=== PATIENT | female | born 1990 | race Caucasian/White ===

== ENCOUNTER 2017-02-19 22:04 | Emergency (ER) | payer OTHER, SELFPAY ==
[2017-02-19 23:00] VITALS: BP 151/93; PULSE 98; O2SAT 96
[2017-02-19] MEDS ORDERED: MOTRIN 600 MG PO ONE (23:16)
--- NOTE | 2017-02-19 23:20 | ERPHSYRPT ---
- History of Present Illness Time Seen by Provider: 02/19/17 23:10 Source: patient, family Patient Subjective Stated Complaint: pt was seen at [facility] today and dx with bronchitis and pneumonia -tonight she is co hearing muffled like under water and pain in right Triage Nursing Assessment: pt is awake and alert Physician History: CC: right earache Hx: 26 y/o patient of dr Hernández. She has cold symptoms for 3 weeks. Hx of PCO and states not . Sometimes smokes. She saw [facility] today and had Rx for alb MDI, tessalon, and Zpack. She is allergies to some other abtx. Tontie the right ear is muffled in hearing and more painful. She goes to school at [employer]. ENT Location: ear (R) Allergies/Adverse Reactions: cefaclor [From Ceclor] Allergy (Verified 11/07/15 06:21) cephalexin monohydrate [From Keflex] Allergy (Verified 11/07/15 06:21) Sulfa (Sulfonamide Antibiotics) Allergy (Verified 07/29/15 01:27) Rash Home Medications: Albuterol Sulfate [Proventil Hfa] 0 02/19/17 [History] Azithromycin 1 tab 02/19/17 [History] Benzonatate [Tessalon Perle] 1 tab 02/19/17 [History] Hx Tetanus, Diphtheria Vaccination/Date Given: Yes Hx Influenza Vaccination/Date Given: Yes Hx Pneumococcal Vaccination/Date Given: No - Review of Systems Constitutional: Malaise, No Fever, No Chills Eyes: No Symptoms Ears, Nose, & Throat: Ear Pain, Hearing Changes (muffled), Nose Congestion, No Ear Discharge Respiratory: Cough Abdominal/Gastrointestinal: No Vomiting, No Diarrhea Skin: No Rash Neurological: No Headache - Past Medical History Pertinent Past Medical History: Yes Neurological History: No Pertinent History ENT History: No Pertinent History Cardiac History: No Pertinent History Respiratory History: No Pertinent History Endocrine Medical History: No Pertinent History Musculoskeletal History: No Pertinent History GI Medical History: GERD History: Other Psycho-Social History: Depression Female Reproductive Disorders: Other Other Medical History: pcos - Past Surgical History Past Surgical History: Yes Neuro Surgical History: No Pertinent History Cardiac: No Pertinent History Respiratory: No Pertinent History Gastrointestinal: No Pertinent History Genitourinary: No Pertinent History Musculoskeletal: Orthopedic Surgery Other Surgical History: bilateral feet - Social History Smoking Status: Former smoker How long have you smoked: 11 Exposure to second hand smoke: No Drug Use: none Patient Lives Alone: No - Female History Hx Last Menstrual Period: 1 yr ago Hx Now: No - Nursing Vital Signs Nursing Vital Signs: Initial Vital Signs Temperature 98.2 F Temperature Source Oral Pulse Rate 98 Respiratory Rate 18 Blood Pressure [Right Arm] 151/93 Pain Intensity 1 - Physical Exam General Appearance: alert Eye Exam: bilateral eye: PERRL, EOMI Ear Exam: right ear: auricle normal, canal normal, TM dull, TM red, TM bulging, left ear: TM normal Nasal Exam: normal inspection Throat Exam: pharynx normal Neck Exam: normal inspection Cardiovascular/Respiratory Exam: normal breath sounds Neurologic Exam: alert Skin Exam: warm, dry SpO2: 96 Oxygen Delivery: Room Air - Course Nursing assessment & vital signs reviewed: Yes Ordered Tests: Medication Summary Generic Name Dose Route Start Last Admin Trade Name Freq PRN Reason Stop Dose Admin Ibuprofen 600 mg 02/19/17 23:16 Motrin 600 Mg PO 02/19/17 23:17 STAT ONE - Progress Progress Note: 02/19/17 23:18 Advised motrin. Continue zpack which was just started in past few hours. Counseled pt/family regarding: diagnosis, need for follow-up - Departure Time of Disposition: 23:19 Departure Disposition: Home Clinical Impression: Right otitis media with effusion Condition: Stable Critical Care Time: No Referrals: SHEN HERNÁNDEZ [Primary Care Provider] - Instructions: Otitis Media (Middle Ear Infection) Additional Instructions: Continue Zpack. Nothing in your ear. Follow up with Dr Hernández. Off work/school tomorrow. Rx ibuprofen=motrin. Prescriptions: Ibuprofen 600 mg PO Q6H PRN PRN #20 tablet PRN Reason: Pain
[2017-02-19] MEDS ORDERED: Motrin 100 MG/5 ML ONE (23:24)
[2017-02-19] MEDS ORDERED: MOTRIN 600 MG ONE (23:25)
== END 2017-02-19 23:34 | disposition home or self-care (01) ==
LOC: ED 22:04
DX: H65.91 Unspecified nonsuppurative otitis media, right ear (principal)
CPT/HCPCS: 99284; A9270-GY

== ENCOUNTER 2017-05-06 22:50 | Emergency (ER) | payer OTHER, SELFPAY ==
[2017-05-06] MEDS ORDERED: Zithromax 250 MG TABLET PO ONE (23:08)
[2017-05-06] MEDS ORDERED: ZOFRAN ODT 4 MG PO ONE (23:08)
[2017-05-06] MEDS ORDERED: Zithromax 250 MG TABLET ONE (23:14)
[2017-05-06] MEDS ORDERED: ZOFRAN ODT 4 MG ONE (23:15)
--- NOTE | 2017-05-06 23:15 | ERPHSYRPT ---
- History of Present Illness Time Seen by Provider: 05/06/17 22:55 Source: patient Exam Limitations: no limitations Patient Subjective Stated Complaint: Pt sts ate dinner - pasta with luis - cramping in abd while eating and vomited x 1. Pt sts she saw a few drops of blood in the vomit and family got concerned and made her come in. Sts nausea and cramping have both resolved. No diarrhea. Sts has discomfort in throat now. Triage Nursing Assessment: Pt alert, oriented, answers all questions appropriately. Skin p/w/d, resps non-labored. Pt ambulatory to tx room, steady gait noted. Lungs CTA bilat. ABD soft, non-tender, + bowel sounds x 4 quadrants. Physician History: FOR THE PAST 2 DAYS PT HAS HAD COUGH PRODUCTIVE OF WHITE PHLEGM AND EARACHES; FOR THE PAST HOUR VOMITING X2 WITH A FEW DROPS OF BLOOD AND A SORE THROAT. PT DENIES CHEST PAIN, SHORTNESS OF AIR, FEVER. Allergies/Adverse Reactions: cefaclor [From Ceclor] Allergy (Verified 05/06/17 23:05) cephalexin monohydrate [From Keflex] Allergy (Verified 05/06/17 23:05) Sulfa (Sulfonamide Antibiotics) Allergy (Verified 05/06/17 23:05) Rash Hx Tetanus, Diphtheria Vaccination/Date Given: Yes Hx Influenza Vaccination/Date Given: Yes Hx Pneumococcal Vaccination/Date Given: No Immunizations Up to Date: Yes - Review of Systems Constitutional: No Fever Ears, Nose, & Throat: Ear Pain, Throat Pain Respiratory: Cough Abdominal/Gastrointestinal: Vomiting All Other Systems: Reviewed and Negative - Past Medical History Pertinent Past Medical History: Yes Neurological History: No Pertinent History ENT History: No Pertinent History Cardiac History: No Pertinent History Respiratory History: No Pertinent History Endocrine Medical History: No Pertinent History Musculoskeletal History: No Pertinent History GI Medical History: GERD History: Other Psycho-Social History: Depression Female Reproductive Disorders: Other Other Medical History: pcos - Past Surgical History Past Surgical History: Yes Neuro Surgical History: No Pertinent History Cardiac: No Pertinent History Respiratory: No Pertinent History Gastrointestinal: No Pertinent History Genitourinary: No Pertinent History Musculoskeletal: Orthopedic Surgery Other Surgical History: bilateral feet - Social History Smoking Status: Current every day smoker How long have you smoked: 10 Exposure to second hand smoke: No Drug Use: none Patient Lives Alone: No - Female History Hx Last Menstrual Period: 07/2016 - PCOS Hx Now: No - Nursing Vital Signs Nursing Vital Signs: Initial Vital Signs Temperature 98.0 F 05/06/17 22:58 Pulse Rate 113 H 05/06/17 22:58 Respiratory Rate 20 05/06/17 22:58 Blood Pressure 131/79 05/06/17 22:58 O2 Sat by Pulse Oximetry 97 05/06/17 22:58 Pain Scale Pain Intensity 0 - Physical Exam General Appearance: alert Eye Exam: PERRL/EOMI Ears, Nose, Throat Exam: moist mucous membranes, pharyngeal erythema, other (TM' S ERYTHEMATOUS) Neck Exam: normal inspection Respiratory Exam: lungs clear Cardiovascular Exam: normal heart sounds Gastrointestinal/Abdomen Exam: soft, normal bowel sounds, No tenderness Back Exam: normal range of motion Extremity Exam: normal inspection Neurologic Exam: alert, cooperative Skin Exam: warm, dry SpO2 Interpretation: normal SpO2: 97 Oxygen Delivery: Room Air - Course Nursing assessment & vital signs reviewed: Yes Ordered Tests: Medication Summary Discontinued Medications Generic Name Dose Route Start Last Admin Trade Name Juanq PRN Reason Stop Dose Admin Azithromycin 500 mg 05/06/17 23:08 Zithromax 250 Mg Tablet PO 05/06/17 23:09 STAT ONE Ondansetron HCl 4 mg 05/06/17 23:08 Zofran Odt 4 Mg PO 05/06/17 23:09 STAT ONE - Departure Time of Disposition: 23:15 Departure Disposition: Home Clinical Impression: BOM, PHARYNGITIS, VOMITING Condition: Stable Critical Care Time: No Referrals: SHEN GOMEZ [Primary Care Provider] - Instructions: Vomiting -- Adult, Otitis Media (Middle Ear Infection) Additional Instructions: FOLLOW UP WITH PRIVATE DOCTOR TOMORROW. Prescriptions: Promethazine HCl 25 mg [Phenergan 25 mg] 25 mg PO Q4H PRN PRN #14 tablet PRN Reason: Nausea/Vomiting Azithromycin 250 mg [Zithromax 250 MG TABLET] 250 mg PO ZPACK #6 tablet Cetirizine HCl [Zyrtec] 10 mg PO DAILY #10 tablet
[2017-05-06 23:35] VITALS: BP 128/62; PULSE 96; O2SAT 99
== END 2017-05-06 23:35 | disposition home or self-care (01) ==
LOC: ED 22:50
DX: H66.93 Otitis media, unspecified, bilateral (principal); J02.9 Acute pharyngitis, unspecified; R11.10 Vomiting, unspecified; R11.2 Nausea with vomiting, unspecified
CPT/HCPCS: 99282; 99283; Q0162; A9270-GY

== ENCOUNTER 2017-05-28 21:07 | Emergency (ER) | payer OTHER, SELFPAY ==
[2017-05-28] MEDS ORDERED: NORCO 5/325 MG PO ONE (21:59)
--- NOTE | 2017-05-28 22:15 | ERPHSYRPT ---
- History of Present Illness Time Seen by Provider: 05/28/17 21:56 Source: patient Exam Limitations: no limitations Patient Subjective Stated Complaint: pt tripped over the cat at 1400 landing on her left elbow on the floor she denies other injuies -there is increased pain with movement -she has not taken anything for the pain -there is no swelling or deformity noted Triage Nursing Assessment: pt is awake and alert and able to answer questions Physician History: ABOUT 7 HOURS AGO AT HOME PT TRIPPED OVER A KITTEN WITH RESULTANT LEFT ELBOW PAIN; DENIES PREVIOUS INJURY TO THE LEFT ELBOW; DENIES NUMBNESS OF THE LEFT HAND DIGITS. Allergies/Adverse Reactions: cefaclor [From Ceclor] Allergy (Verified 05/28/17 21:57) cephalexin monohydrate [From Keflex] Allergy (Verified 05/28/17 21:57) Sulfa (Sulfonamide Antibiotics) Allergy (Verified 05/28/17 21:57) Rash Hx Tetanus, Diphtheria Vaccination/Date Given: Yes Hx Influenza Vaccination/Date Given: No Hx Pneumococcal Vaccination/Date Given: No Immunizations Up to Date: No - Review of Systems Musculoskeletal: Joint Pain (LEFT ELBOW PAIN) - Past Medical History Pertinent Past Medical History: Yes Neurological History: No Pertinent History ENT History: No Pertinent History Cardiac History: No Pertinent History Respiratory History: No Pertinent History Endocrine Medical History: No Pertinent History Musculoskeletal History: No Pertinent History GI Medical History: GERD History: Other Psycho-Social History: Depression Female Reproductive Disorders: Other Other Medical History: pcos - Past Surgical History Past Surgical History: Yes Neuro Surgical History: No Pertinent History Cardiac: No Pertinent History Respiratory: No Pertinent History Gastrointestinal: No Pertinent History Genitourinary: No Pertinent History Musculoskeletal: Orthopedic Surgery Other Surgical History: bilateral feet - Social History Smoking Status: Current every day smoker How long have you smoked: 10 Exposure to second hand smoke: No Drug Use: none Patient Lives Alone: No - Female History Hx Last Menstrual Period: nov Hx Now: No - Nursing Vital Signs Nursing Vital Signs: Initial Vital Signs Temperature 98.6 F 05/28/17 21:56 Pulse Rate 108 H 05/28/17 21:56 Respiratory Rate 16 05/28/17 21:56 Blood Pressure 130/78 05/28/17 21:56 O2 Sat by Pulse Oximetry 97 05/28/17 21:56 Pain Scale Pain Intensity 3 - Physical Exam General Appearance: alert Shoulder Exam: normal ROM Elbow/Forearm Exam: normal ROM, pain (PAIN IN LEFT ELBOW WITH ROM) Wrist Exam: normal ROM Hand Exam: normal ROM Neuro/Tendon Exam: normal sensation, normal motor functions Mental Status Exam: alert, cooperative Skin Exam: warm, dry SpO2 Interpretation: normal SpO2: 97 Oxygen Delivery: Room Air - Course Nursing assessment & vital signs reviewed: Yes - Radiology Exams Left Elbow X-ray Interpretation: Interpreted by me, No Fracture Ordered Tests: Active Orders 24 hr Category Date Time Status Wilian Bandage Application -[facility] STAT Care 05/28/17 21:59 Active Sling Application STAT Care 05/28/17 21:59 Active ELBOW (MINIMUM 3 VIEWS) Stat Exams 05/28/17 21:59 Taken Medication Summary Discontinued Medications Generic Name Dose Route Start Last Admin Trade Name Freq PRN Reason Stop Dose Admin Hydrocodone Bitart/Acetaminophen 2 tab 05/28/17 21:59 05/28/17 22:17 [place] 5/325 Mg PO 05/28/17 22:00 2 tab STAT ONE Administration Hydrocodone Bitart/Acetaminophen Confirm 05/28/17 22:16 [place] 5/325 Mg Administered 05/28/17 22:17 Dose 2 tab .ROUTE .STK-MED ONE - Departure Time of Disposition: 23:21 Departure Disposition: Home Clinical Impression: LEFT ELBOW SPRAIN Condition: Stable Critical Care Time: No Referrals: SHEN GOMEZ [Primary Care Provider] - Instructions: Elbow Sprain Additional Instructions: FOLLOW UP WITH PRIVATE DOCTOR TOMORROW. ELEVATE LEFT ELBOW ABOVE HEART LEVEL FOR 24 HOURS. WILIAN WRAP TO LEFT ELBOW FOR 4 DAYS. WEAR LEFT ARM SLING FOR COMFORT. Prescriptions: Naproxen [Naprosyn] 500 mg PO Q12H PRN PRN #20 tablet PRN Reason: Pain
[2017-05-28] MEDS ORDERED: NORCO 5/325 MG ONE (22:16)
[2017-05-28 23:34] VITALS: BP 129/74; PULSE 100; O2SAT 96
--- NOTE | 2017-05-29 09:12 | XRAY ---
Indication: Pain following fall. Comparison: None 3 views of the left elbow obtained. No bony, articular, or soft tissue abnormalities.
== END 2017-05-28 23:33 | disposition home or self-care (01) ==
LOC: ED 21:07
DX: S53.402A Unspecified sprain of left elbow, initial encounter (principal); W01.0XXA Fall on same level from slipping, tripping and stumbling without subsequent striking against object, initial encounter
CPT/HCPCS: 73080; 99284; A9270-GY

== ENCOUNTER 2017-08-30 01:01 | Emergency (ER) | payer BC, OTHER ==
[2017-08-30 01:22] VITALS: O2SAT 97
[2017-08-30] MEDS ORDERED: ZOFRAN ODT 4 MG PO ONE (01:26)
[2017-08-30] MEDS ORDERED: TORAdol 30 mg Injection IM ONE (01:26)
[2017-08-30] MEDS ORDERED: TORAdol 30 mg Injection ONE (01:31)
[2017-08-30] MEDS ORDERED: ZOFRAN ODT 4 MG ONE (01:31)
[2017-08-30 01:40] LABS: Bilirubin NEGATIVE (NEGATIVE); Blood TRACE NON-HEM Ery/ul (0-5); COMPLETE URINE MICROSCOPIC? YES; Collection Type CCMS; Glucose NEGATIVE (NEGATIVE); Leukocyte Esterase TRACE (NEGATIVE)
[2017-08-30 01:43] LABS: ADD URINE CULTURE? YES (NO); Bacteria FEW /HPF (NEGATIVE); Epithelial Cells MANY /HPF (FEW); WBC 15-25 /HPF (0-5)
--- NOTE | 2017-08-30 02:04 | ERPHSYRPT ---
- History of Present Illness Time Seen by Provider: 08/30/17 01:43 Source: patient Exam Limitations: no limitations Patient Subjective Stated Complaint: pt reports flank pain and pain with urination for 2 days. states there is a foul odor to her urine and she has frequency. states she noticed her urine was also pink in color. Triage Nursing Assessment: pt is aox3, pupils perrl, pt is afebrile resps easy and non labored, abd is soft and non tender, skin is pink warm dry. non radiating pain to the right flank with dysuria, hematuria and frequency. Physician History: 27 y/o female comes to the ER with complaints of right flank pain, dysuria, polyuria and nausea for the last 2 days. Pt describes the pain as sharp, intermittent, 7/10 and pt has not taken any pain meds. Pt denies any fever, chills, vomiting, abdominal pain, constipation, diarrhea or hematuria. Timing/Duration: day(s) Activites at Onset: none Quality: sharpness Onset Location: low back pain Pain Radiation: none Severity of Pain-Max: moderate Severity of Pain-Current: moderate Prior abdominal problems: none Modifying Factors: Improves With: nothing Associated Symptoms: dysuria, urinary frequency Allergies/Adverse Reactions: cefaclor [From Ceclor] Allergy (Verified 08/30/17 01:22) cephalexin monohydrate [From Keflex] Allergy (Verified 08/30/17 01:22) Sulfa (Sulfonamide Antibiotics) Allergy (Verified 08/30/17 01:22) Rash Hx Tetanus, Diphtheria Vaccination/Date Given: No Hx Influenza Vaccination/Date Given: No Hx Pneumococcal Vaccination/Date Given: No - Review of Systems Constitutional: No Fever, No Chills Eyes: No Symptoms Ears, Nose, & Throat: No Symptoms Respiratory: No Cough, No Dyspnea Cardiac: No Chest Pain, No Edema, No Syncope Abdominal/Gastrointestinal: Nausea, No Abdominal Pain, No Vomiting, No Diarrhea Genitourinary Symptoms: Dysuria, Frequency Musculoskeletal: Back Pain, No Neck Pain Skin: No Rash Neurological: No Dizziness, No Focal Weakness, No Sensory Changes Psychological: No Symptoms Endocrine: No Symptoms All Other Systems: Reviewed and Negative - Past Medical History Pertinent Past Medical History: No Neurological History: No Pertinent History ENT History: No Pertinent History Cardiac History: No Pertinent History Respiratory History: No Pertinent History Endocrine Medical History: No Pertinent History Musculoskeletal History: No Pertinent History GI Medical History: GERD History: Other Psycho-Social History: Depression Female Reproductive Disorders: Other Other Medical History: pcos - Past Surgical History Past Surgical History: Yes Neuro Surgical History: No Pertinent History Cardiac: No Pertinent History Respiratory: No Pertinent History Gastrointestinal: No Pertinent History Genitourinary: No Pertinent History Musculoskeletal: Orthopedic Surgery Other Surgical History: bilateral feet - Social History Smoking Status: Current every day smoker How long have you smoked: 1/2 Exposure to second hand smoke: No Drug Use: none Patient Lives Alone: No - Female History Hx Last Menstrual Period: 07/01/17 Hx Now: Yes - Nursing Vital Signs Nursing Vital Signs: Initial Vital Signs Temperature 97.8 F 08/30/17 01:08 Pulse Rate 96 H 08/30/17 01:08 Respiratory Rate 18 08/30/17 01:08 Blood Pressure 150/88 08/30/17 01:08 O2 Sat by Pulse Oximetry 97 08/30/17 01:08 Pain Scale Pain Intensity 3 - Physical Exam General Appearance: no apparent distress, alert Eye Exam: PERRL/EOMI, eyes nml inspection Ears, Nose, Throat Exam: normal ENT inspection, TMs normal, pharynx normal, moist mucous membranes Neck Exam: normal inspection, non-tender, supple, full range of motion Respiratory Exam: normal breath sounds, lungs clear, No respiratory distress Cardiovascular Exam: regular rate/rhythm, normal heart sounds, normal peripheral pulses Gastrointestinal/Abdomen Exam: soft, No tenderness, No mass Back Exam: normal inspection, normal range of motion, CVA tenderness, No vertebral tenderness Extremity Exam: normal inspection, normal range of motion, pelvis stable Neurologic Exam: alert, oriented x 3, cooperative, pan greaser II-XII nml as tested, normal mood/affect, sensation nml, No motor deficits Skin Exam: normal color, warm, dry Lymphatic Exam: No adenopathy SpO2: 97 Oxygen Delivery: Room Air - Course Nursing assessment & vital signs reviewed: Yes Ordered Tests: Active Orders 24 hr Category Date Time Status CULTURE,URINE Stat Lab 08/30/17 01:30 Received HCG,QUALITATIVE URINE Stat Lab 08/30/17 01:30 Completed UA W/ MICROSCOPIC Stat Lab 08/30/17 01:30 Completed Medication Summary Discontinued Medications Generic Name Dose Route Start Last Admin Trade Name Freq PRN Reason Stop Dose Admin Ciprofloxacin 500 mg 08/30/17 02:05 08/30/17 02:19 Cipro 500 Mg PO 08/30/17 02:06 500 mg ONCE ONE Administration Ciprofloxacin Confirm 08/30/17 02:16 Cipro 500 Mg Administered 08/30/17 02:17 Dose 500 mg .ROUTE .STK-MED ONE Ketorolac Tromethamine 60 mg 08/30/17 01:26 08/30/17 02:08 Toradol 30 Mg Injection IM 08/30/17 01:27 60 mg STAT ONE Administration Ketorolac Tromethamine Confirm 08/30/17 01:31 Toradol 30 Mg Injection Administered 08/30/17 01:32 Dose 60 mg .ROUTE .STK-MED ONE Ondansetron HCl 4 mg 08/30/17 01:26 08/30/17 02:08 Zofran Odt 4 Mg PO 08/30/17 01:27 4 mg STAT ONE Administration Ondansetron HCl Confirm 08/30/17 01:31 Zofran Odt 4 Mg Administered 08/30/17 01:32 Dose 4 mg .ROUTE .STK-MED ONE Lab/Rad Data: Laboratory Results 08/30/17 08/30/17 Range/Units 01:30 01:30 Ur Collection Type CCMS Urine Color YELLOW (YELLOW) Urine Appearance CLEAR (CLEAR) Urine pH 5.0 (5-6) Ur Specific [place] 1.025 (1.005-1.025) Urine Protein TRACE (Negative) Urine Ketones NEGATIVE (NEGATIVE) Urine Blood TRACE NON-HEM (0-5) Nadeem/ul Urine Nitrite NEGATIVE (NEGATIVE) Urine Bilirubin NEGATIVE (NEGATIVE) Urine Urobilinogen NORMAL (0-1) mg/dL Ur Leukocyte Esterase TRACE (NEGATIVE) Urine Microscopic RBC 2-5 (0-2) /HPF Urine Microscopic WBC 15-25 (0-5) /HPF Ur Epithelial Cells MANY (FEW) /HPF Urine Bacteria FEW (NEGATIVE) /HPF Urine Culture Reflexed YES (NO) Urine Glucose NEGATIVE (NEGATIVE) mg/dL Urine HCG, Qual NEGATIVE (Negative) Specimen Received 08-30-17 0140 - Progress Progress: improved Progress Note: 08/30/17 02:44 Pt feels better after receiving toradol but still has stiffness. The UA shows features of a UTI and the patient complains of dysuria. Pt will be d/c home with toradol, flexeril and cipro for back strain and UTI - Departure Time of Disposition: 02:46 Departure Disposition: Home Clinical Impression: UTI (urinary tract infection) Qualifiers: Urinary tract infection type: site unspecified Hematuria presence: without hematuria Qualified Code(s): N39.0 - Urinary tract infection, site not specified Back strain Qualifiers: Encounter type: initial encounter Qualified Code(s): S39.012A - Strain of muscle, fascia and tendon of lower back, initial encounter Condition: Stable Critical Care Time: No Referrals: SHEN GOMEZ [Primary Care Provider] - Instructions: Urinary Tract Infection (UTI), Low Back Pain Additional Instructions: Follow up with your primary care doctor if you should continue to have back pain. Prescriptions: Ciprofloxacin HCl [Cipro] 500 mg PO BID #13 tablet Cyclobenzaprine HCl [Flexeril] 5 mg PO TID PRN #14 tablet PRN Reason: Muscle Spasms Ketorolac Tromethamine [Toradol] 10 mg PO QID PRN #20 tablet PRN Reason: Pain
[2017-08-30] MEDS ORDERED: Cipro 500 MG PO ONE (02:05)
[2017-08-30] MEDS ORDERED: Cipro 500 MG ONE (02:16)
[2017-08-30] MEDS ORDERED: Cyclobenzaprine 10 MG PO ONE (02:44)
[2017-08-30] MEDS ORDERED: Cyclobenzaprine 10 MG ONE (02:48)
[2017-08-30 03:01] VITALS: BP 141/78; PULSE 88
== END 2017-08-30 03:10 | disposition home or self-care (01) ==
LOC: ED 01:01
DX: N39.0 Urinary tract infection, site not specified (principal); S39.012A Strain of muscle, fascia and tendon of lower back, initial encounter; R10.9 Unspecified abdominal pain; R82.90 Unspecified abnormal findings in urine; R30.0 Dysuria; R35.0 Frequency of micturition; R35.8 Other polyuria; R11.0 Nausea; M54.5 Low back pain
CPT/HCPCS: 81000; 84703; 87086; 99284; J1885; Q0162; A9270-GY

== ENCOUNTER 2018-11-11 20:21 | Emergency (ER) | payer OTHER ==
[2018-11-11 20:42] VITALS: BP 147/95; PULSE 118; O2SAT 96
--- NOTE | 2018-11-11 21:11 | ERPHSYRPT ---
- History of Present Illness Time Seen by Provider: 11/11/18 20:50 Source: patient, family Exam Limitations: no limitations Patient Subjective Stated Complaint: C/o fever and headache since 11/08. Also c/o being sick for the past 2 months. Has been seen by PCP and was told she had a common cold, water on her ear, and sinus trouble. Has been prescribed zithromax , augmentin, and prednisone. Triage Nursing Assessment: Pt alert and oriented x 3. Skin flushed, warm, and dry. Lung sounds clear anterior, posterior, bilat throughout. Physician History: 28 y/o morbidly obese white female presents with fever for 4 days and flu like sx for 2 months. pt has been seen for flu like sx twice and given antibx, inhalers and steroids. pt has not had any blood draws, cxr, urinalysis, or flu swabs obtained. pt refuses flu swabs now. last temp was 103 F, last tylenol was at 1230 today. no cp, mild intermittent cough, no abd pain, no n/v/d, Timing/Duration: day(s) (fever 4 days), other (flu like sx months) Associated Symptoms: muscle aches Allergies/Adverse Reactions: cefaclor [From Ceclor] Allergy (Verified 11/11/18 20:42) cephalexin monohydrate [From Keflex] Allergy (Verified 11/11/18 20:42) Sulfa (Sulfonamide Antibiotics) Allergy (Verified 11/11/18 20:42) Rash Home Medications: Albuterol Common Canister [Proventil Common Canister] 2 puffs IH Q12H PRN PRN 11/11/18 [History] Bupropion HCl [Bupropion Xl] 300 mg PO DAILY 11/11/18 [History] Hx Tetanus, Diphtheria Vaccination/Date Given: Yes Hx Influenza Vaccination/Date Given: No Hx Pneumococcal Vaccination/Date Given: No Immunizations Up to Date: Yes - Review of Systems Constitutional: Fever, Malaise Eyes: No Symptoms Ears, Nose, & Throat: No Symptoms Respiratory: Cough (mild intermittent over 2 months) Cardiac: No Symptoms Abdominal/Gastrointestinal: No Symptoms Genitourinary Symptoms: No Symptoms, No Dysuria, No Frequency, No Hematuria Musculoskeletal: Arthralgias, Myalgias Neurological: No Symptoms Psychological: No Symptoms Endocrine: No Symptoms Hematologic/Lymphatic: No Symptoms Immunological/Allergic: No Symptoms All Other Systems: Reviewed and Negative - Past Medical History Pertinent Past Medical History: Yes Neurological History: No Pertinent History ENT History: No Pertinent History Cardiac History: No Pertinent History Respiratory History: No Pertinent History Endocrine Medical History: No Pertinent History Musculoskeletal History: No Pertinent History GI Medical History: No Pertinent History History: No Pertinent History Psycho-Social History: Depression Female Reproductive Disorders: Other Other Medical History: recently prescribed diet pills, PCOS - Past Surgical History Past Surgical History: Yes Neuro Surgical History: No Pertinent History Cardiac: No Pertinent History Respiratory: No Pertinent History Gastrointestinal: No Pertinent History Genitourinary: No Pertinent History Musculoskeletal: Other Female Surgical History: No Pertinent History Other Surgical History: bilateral foot surgery at age of 7 - Social History Smoking Status: Current every day smoker How long have you smoked: 7 years Exposure to second hand smoke: No Drug Use: none Patient Lives Alone: No - Female History Hx Now: Yes (unsure of last period) - Nursing Vital Signs Nursing Vital Signs: Initial Vital Signs Temperature 103 F 11/11/18 20:26 Pulse Rate 118 H 11/11/18 20:26 Respiratory Rate 16 11/11/18 20:26 Blood Pressure 147/95 11/11/18 20:26 O2 Sat by Pulse Oximetry 96 11/11/18 20:26 Pain Scale Pain Intensity 5 - Physical Exam General Appearance: mild distress, alert, obese Eye Exam: PERRL/EOMI, eyes nml inspection ENT Exam: normal ENT inspection, no apparent trauma, hearing grossly normal, TMs normal, pharynx normal Neck Exam: normal inspection, non-tender, supple, full range of motion, trachea midline Respiratory Exam: normal breath sounds, lungs clear, no respiratory distress, no accessory muscle use, No chest non-tender Cardiovascular/Chest Exam: normal heart sounds, tachycardia Gastrointestinal/Abdominal Exam: soft, non tender, no distention, no mass, no guarding Pelvic Exam: not done Rectal Exam: not done Extremity Exam: non-tender, normal range of motion, normal inspection Neurologic Exam: alert, oriented x 3, cooperative, mobile ui designer II-XII nml as tested Skin Exam: normal color, warm, dry Lymphatic: No adenopathy SpO2 Interpretation: normal SpO2: 96 - Course Nursing assessment & vital signs reviewed: Yes Ordered Tests: Active Orders 24 hr Category Date Time Status Fabric Normalizer STAT Care 11/11/18 21:15 Active Clean Catch Urine Specimen STAT Care 11/11/18 21:13 Active IV Insertion STAT Care 11/11/18 21:13 Active CHEST 1 VIEW (PORTABLE) Stat Exams 11/11/18 21:14 Taken BLOOD CULTURE Stat Lab 11/11/18 21:14 Ordered CBC W DIFF Stat Lab 11/11/18 21:13 Completed CMP Stat Lab 11/11/18 21:13 Completed HCG,QUALITATIVE URINE Stat Lab 11/11/18 21:20 Completed [place] Screen Stat Lab 11/11/18 Completed SED RATE [Erythrocyte Sedimentation Rate] Stat Lab 11/11/18 21:18 Completed UA W/RFX UR CULTURE Stat Lab 11/11/18 21:20 Completed Medication Summary Discontinued Medications Generic Name Dose Route Start Last Admin Trade Name Freq PRN Reason Stop Dose Admin Acetaminophen 650 mg 11/11/18 21:13 11/11/18 21:22 Tylenol 325 Mg PO 11/11/18 21:14 650 mg STAT STA Administration Acetaminophen Confirm 11/11/18 21:20 Tylenol 325 Mg Administered 11/11/18 21:21 Dose 650 mg .ROUTE .STK-MED ONE Sodium Chloride 1,000 mls @ 999 mls/hr 11/11/18 21:13 11/11/18 21:43 Sodium Chloride 0.9% 1000 Ml IV 11/11/18 22:13 999 mls/hr .Q1H1M STA Administration Sodium Chloride Confirm 11/11/18 21:20 Sodium Chloride 0.9% 1000 Ml Administered 11/11/18 21:21 Dose 1,000 mls @ ud .ROUTE .STK-MED ONE Ibuprofen 600 mg 11/11/18 21:13 11/11/18 21:22 Motrin 600 Mg PO 11/11/18 21:14 600 mg STAT STA Administration Ibuprofen Confirm 11/11/18 21:20 Motrin 600 Mg Administered 11/11/18 21:21 Dose 600 mg .ROUTE .STK-MED ONE Lab/Rad Data: Laboratory Result Diagrams 11/11/18 21:13 11/11/18 21:13 Laboratory Results 11/11/18 11/11/18 11/11/18 Range/Units Unknown 21:20 21:20 WBC (4.0-10.5) K/mm3 RBC (4.1-5.4) M/mm3 Hgb (12.0-16.0) gm/dl Hct (35-47) % MCV (78-100) fl MCH (26-32) pg MCHC (32-36) g/dl RDW (11.5-14.0) % Plt Count (150-450) K/mm3 MPV (6-9.5) fl Gran % (36.0-66.0) % Eos # (Auto) (0-0.5) Absolute Lymphs (auto) (1.0-4.6) Absolute Monos (auto) (0.0-1.3) Lymphocytes % (24.0-44.0) % Monocytes % (0.0-12.0) % Eosinophils % (0.00-5.0) % Basophils % (0.0-0.4) % Absolute Granulocytes (1.4-6.9) Basophils # (0-0.4) ESR (0-20) mm/hr Sodium (137-145) mmol/L Potassium (3.5-5.1) mmol/L Chloride (98-107) mmol/L Carbon Dioxide (22-30) mmol/L Anion Gap (5-15) MEQ/L BUN (7-17) mg/dL Creatinine (0.52-1.04) mg/dL Estimated GFR ML/MIN Glucose (74-106) mg/dL Calcium (8.4-10.2) mg/dL Total Bilirubin (0.2-1.3) mg/dL AST (14-36) U/L ALT (0-35) U/L Alkaline Phosphatase (38-126) U/L Serum Total Protein (6.3-8.2) g/dL Albumin (3.5-5.0) g/dL Urine Color YELLOW (YELLOW) Urine Appearance SLIGHTLY CLOUDY (CLEAR) Urine pH 6.0 (5-6) Ur Specific [place] 1.020 (1.005-1.025) Urine Protein NEGATIVE (Negative) Urine Ketones NEGATIVE (NEGATIVE) Urine Blood NEGATIVE (0-5) Nadeem/ul Urine Nitrite NEGATIVE (NEGATIVE) Urine Bilirubin NEGATIVE (NEGATIVE) Urine Urobilinogen 4 (0-1) mg/dL Ur Leukocyte Esterase NEGATIVE (NEGATIVE) Urine WBC (Auto) 6-10 (0-5) /HPF Urine RBC (Auto) 0-2 (0-2) /HPF U Epithel Cells (Auto) FEW (FEW) /HPF Urine Bacteria (Auto) RARE (NEGATIVE) /HPF Urine Mucus (Auto) SLIGHT (NEGATIVE) /HPF Urine Culture Reflexed NO (NO) Urine Glucose NEGATIVE (NEGATIVE) mg/dL Urine HCG, Qual NEGATIVE (Negative) Monoscreen NEGATIVE (Negative) 11/11/18 11/11/18 11/11/18 Range/Units 21:18 21:13 21:13 WBC 2.3 L (4.0-10.5) K/mm3 RBC 4.67 (4.1-5.4) M/mm3 Hgb 12.9 (12.0-16.0) gm/dl Hct 40.8 (35-47) % MCV 87.4 (78-100) fl MCH 27.6 (26-32) pg MCHC 31.6 L (32-36) g/dl RDW 14.4 H (11.5-14.0) % Plt Count 119 L (150-450) K/mm3 MPV 9.6 H (6-9.5) fl Gran % 63.1 (36.0-66.0) % Eos # (Auto) 0 (0-0.5) Absolute Lymphs (auto) 0.67 L (1.0-4.6) Absolute Monos (auto) 0.16 (0.0-1.3) Lymphocytes % 29.5 (24.0-44.0) % Monocytes % 7.0 (0.0-12.0) % Eosinophils % 0.0 (0.00-5.0) % Basophils % 0.4 (0.0-0.4) % Absolute Granulocytes 1.43 (1.4-6.9) Basophils # 0.01 (0-0.4) ESR 45 H (0-20) mm/hr Sodium 141 (137-145) mmol/L Potassium 3.9 (3.5-5.1) mmol/L Chloride 105 (98-107) mmol/L Carbon Dioxide 27 (22-30) mmol/L Anion Gap 12.5 (5-15) MEQ/L BUN 7 (7-17) mg/dL Creatinine 0.99 (0.52-1.04) mg/dL Estimated GFR > 60.0 ML/MIN Glucose 100 (74-106) mg/dL Calcium 8.5 (8.4-10.2) mg/dL Total Bilirubin 1.10 (0.2-1.3) mg/dL AST 62 H (14-36) U/L ALT 65 H (0-35) U/L Alkaline Phosphatase 95 (38-126) U/L Serum Total Protein 7.2 (6.3-8.2) g/dL Albumin 4.0 (3.5-5.0) g/dL Urine Color (YELLOW) Urine Appearance (CLEAR) Urine pH (5-6) Ur Specific [place] (1.005-1.025) Urine Protein (Negative) Urine Ketones (NEGATIVE) Urine Blood (0-5) Nadeem/ul Urine Nitrite (NEGATIVE) Urine Bilirubin (NEGATIVE) Urine Urobilinogen (0-1) mg/dL Ur Leukocyte Esterase (NEGATIVE) Urine WBC (Auto) (0-5) /HPF Urine RBC (Auto) (0-2) /HPF U Epithel Cells (Auto) (FEW) /HPF Urine Bacteria (Auto) (NEGATIVE) /HPF Urine Mucus (Auto) (NEGATIVE) /HPF Urine Culture Reflexed (NO) Urine Glucose (NEGATIVE) mg/dL Urine HCG, Qual (Negative) Monoscreen (Negative) - Progress Progress: improved Progress Note: 11/11/18 23:12 cxr-no acute process. i reviewed pts lab results with her. there is an inflammatory process present. no defined or localized infection. we agreed not to give any antibx at this time and wait for blood culture results. Counseled pt/family regarding: lab results, diagnosis, need for follow-up, rad results - Departure Time of Disposition: 23:15 Departure Disposition: Home Clinical Impression: Fever of unknown origin, Leukopenia, Thrombocytopenia Condition: Stable Critical Care Time: No Referrals: SHEN GOMEZ [Primary Care Provider] - Additional Instructions: alternate tylenol and ibuprofen every 4 hours as discussed for fever. follow up with your primary doctor tomorrow for further management and referral to solidworks mechanical designer if indicated.
[2018-11-11] MEDS ORDERED: Sodium Chloride 0.9% 1000 ML 1,000 ML IV STA (21:13)
[2018-11-11] MEDS ORDERED: TYLENOL 325 MG PO STA (21:13)
[2018-11-11] MEDS ORDERED: MOTRIN 600 MG PO STA (21:13)
[2018-11-11] MEDS ORDERED: MOTRIN 600 MG ONE (21:20)
[2018-11-11] MEDS ORDERED: TYLENOL 325 MG ONE (21:20)
[2018-11-11] MEDS ORDERED: Sodium Chloride 0.9% 1000 ML 1,000 ML ONE (21:20)
[2018-11-11 21:53] LABS: BASOPHIL % 0.4 % (0.0-0.4); Basophil (Absolute #) 0.01 (0-0.4); Eosinophil (Absolute #) 0 (0-0.5); Granulocyte Absolute (ANC) 1.43 (1.4-6.9); Granulocytes % 63.1 % (36.0-66.0); Hematocrit 40.8 % (35-47); Hemoglobin 12.9 gm/dl (12.0-16.0); Lymphocyte (Absolute #) 0.67 (1.0-4.6); Lymphocytes % 29.5 % (24.0-44.0); Mean Cell Volume 87.4 fl (78-100); Mean Corpuscular Hemoglobin 27.6 pg (26-32); Mean Corpuscular Hgb Concent. 31.6 g/dl (32-36); Mean Platelet Volume 9.6 fl (6-9.5); Monocyte (Absolute #) 0.16 (0.0-1.3); Platelet Count 119 K/mm3 (150-450); Red Blood Count 4.67 M/mm3 (4.1-5.4); Red Cell Distribution Width 14.4 % (11.5-14.0); White Blood Count 2.3 K/mm3 (4.0-10.5)
[2018-11-11 22:02] LABS: Appearance SLIGHTLY CLOUDY (CLEAR); Bacteria RARE /HPF (NEGATIVE); Bilirubin NEGATIVE (NEGATIVE); Blood NEGATIVE Ery/ul (0-5); Epithelial Cells FEW /HPF (FEW); Glucose NEGATIVE (NEGATIVE); Ketones NEGATIVE (NEGATIVE); Leukocyte Esterase NEGATIVE (NEGATIVE); Mucus SLIGHT /HPF (NEGATIVE); Nitrite NEGATIVE (NEGATIVE); Protein,Urine Dip NEGATIVE (Negative); RBC 0-2 /HPF (0-2); Urobilinogen 4 mg/dL (0-1)
[2018-11-11 22:05] LABS: ALKALINE PHOSPHATASE 95 U/L (38-126); ANION GAP 12.5 MEQ/L (5-15); BLOOD UREA NITROGEN 7 mg/dL (7-17); CHLORIDE 105 mmol/L (98-107); Calcium 8.5 mg/dL (8.4-10.2); Carbon Dioxide 27 mmol/L (22-30); Creatinine 1 0.99 mg/dL (0.52-1.04); Glucose 100 mg/dL (74-106); Potassium 3.9 mmol/L (3.5-5.1); SGOT/AST 62 U/L (14-36); SGPT/ALT 65 U/L (0-35); SODIUM 141 mmol/L (137-145); Total Protein 7.2 g/dL (6.3-8.2)
--- NOTE | 2018-11-12 09:07 | XRAY ---
Indication: Fever. Comparison: None Portable chest demonstrates normal heart, lungs, and bony thorax.
[2018-11-13 04:58] LABS: HEPATITIS B VIRUS CORE TOT AB Non Reactive (Non Reactive); HEPATITIS C VIRUS ANTIBODY Non Reactive (Non Reactive); Hepatitis B Surface Antigen Non Reactive (Non Reactive)
== END 2018-11-11 23:30 | disposition home or self-care (01) ==
LOC: ED 20:21
DX: R50.9 Fever, unspecified (principal); R68.89 Other general symptoms and signs; D69.6 Thrombocytopenia, unspecified; F32.9 Major depressive disorder, single episode, unspecified
CPT/HCPCS: 36415; 71045; 80053; 80074; 81001; 84703; 85025; 85652; 86308; 87040; 96360; 96374; 99284; A9270-GY

== ENCOUNTER 2022-12-30 22:07 | Emergency (ER) | payer OTHER ==
[2022-12-30] MEDS ORDERED: BABY ASPIRIN 81 MG CHEW PO ONE (22:54)
[2022-12-30 23:01] LABS: Absolute Neutrophil Ct (ANC) 8.34 x10^3/uL (1.4-6.9); BASOPHIL % 0.4 % (0.0-0.4); Basophil (Absolute #) 0.06 x10^3/uL (0-0.4); Eosinophil % 0.8 % (0.00-5.0); Eosinophil (Absolute #) 0.11 x10^3/uL (0-0.5); Hemoglobin 15.1 g/dL (12.0-16.0); IMMATURE GRAN # 0.05 x10^3u/L (0.00-0.03); IMMATURE GRAN % 0.4 % (0.00-0.4); Lymphocyte (Absolute #) 4.45 x10^3/uL (1.0-4.6); Mean Cell Volume 91.8 fL (78-100); Mean Corpuscular Hemoglobin 29.5 pg (26-32); Mean Corpuscular Hgb Concent. 32.1 g/dL (32-36); Mean Platelet Volume 10.2 fL (7.5-11.0); Monocyte (Absolute #) 0.88 x10^3/uL (0.0-1.3); Monocytes % 6.3 % (0.0-12.0); Neutrophil % 60.1 % (36.0-66.0); Platelet Count 328 x10^3/uL (150-450); Red Blood Count 5.12 x10^6/uL (4.1-5.4); Red Cell Distribution Width 12.8 % (11.5-14.0); White Blood Count 13.9 x10^3/uL (4.0-10.5)
[2022-12-30 23:04] LABS: HCG SERUM TEST NEGATIVE (NEGATIVE)
[2022-12-30 23:08] VITALS: O2SAT 96
[2022-12-30 23:09] LABS: ALBUMIN 4.6 g/dL (3.5-5.0); BILIRUBIN,TOTAL 0.8 mg/dL (0.2-1.3); Calcium 9.1 mg/dL (8.4-10.2); Creatinine 1 1.19 mg/dL (0.52-1.04); EST GLOMERULAR FILTRATION RATE 56.2 ML/MIN; Total Protein 8.5 g/dL (6.3-8.2)
[2022-12-30 23:10] LABS: Potassium 2.9 mmol/L (3.5-5.1)
[2022-12-30] MEDS ORDERED: Sodium Chloride 0.9% 1000 ML 1,000 ML IV STA (23:27)
[2022-12-30] MEDS ORDERED: Klor Con PO ONE ×2 (23:27→23:34)
[2022-12-30] MEDS ORDERED: POTASSIUM CHLORIDE 20 mEq IN WATER 100ML 20 MEQ/100 ML BAG IV ONE (23:27)
[2022-12-30] MEDS ORDERED: POTASSIUM CHLORIDE 20 mEq IN WATER 100ML 100 ML IV ONE (23:34)
[2022-12-30] MEDS ORDERED: Sodium Chloride 0.9% 1000 ML 1,000 ML ONE (23:34)
--- NOTE | 2022-12-30 23:38 | ERPHSYRPT ---
- History of Present Illness Time Seen by Provider: 12/30/22 22:25 Historian: patient Exam Limitations: no limitations Patient Subjective Stated Complaint: palpitations off an on x2 days Triage Nursing Assessment: pt ambulated into ER without diff, spouse at bedside. Pt alert and oriented x4, pleasant and cooperative. Pt c/o heart palpitations x2 days off and on. Pt denies any chest pain. Lungs clear, heart tones reg. Pt does not like to see blood as it makes her sick, pt dry heaved into vomit bag due to looking at blood from IV start from medic student. Physician History: 32-year-old female with history of anxiety, depression, hyperlipidemia presented in the ER with chief complaint of palpitations/racing of heart for the last couple of days with activity and better with resting. Minimal pressure in the chest at time. Patient currently has no symptoms. Denies any fever chills or cough. Does report feeling mild short of breath with activity at times as well. No history of PE/DVT, lower extremity swelling or long travel. Does not take any hormonal pills. No history of CAD in the past or similar symptoms. Timing/Duration: day(s) (2), intermittent Activities at Onset: activity Severity of Pain-Max: mild Severity of Pain-Current: none Modifying Factors: Worsens With: exertion Associated Symptoms: palpitations, shortness of breath Prior Chest Pain/Cardiac Workup: no prior chest pain, no prior cardiac workup Nitro Today/Relief: no nitro taken today Aspirin Treatment Today: no aspirin today Allergies/Adverse Reactions: cefaclor [From Ceclor] Allergy (Verified 12/30/22 22:24) cephalexin monohydrate [From Keflex] Allergy (Verified 12/30/22 22:24) metformin Allergy (Verified 12/30/22 22:24) Diarrhea Sulfa (Sulfonamide Antibiotics) Allergy (Verified 12/30/22 22:24) Rash Home Medications: Albuterol Common Canister [Ventolin Common Canister] 2 puffs IH Q12H PRN PRN 11/11/18 [History] buPROPion HCL [Bupropion Xl] 300 mg PO BID 11/11/18 [History] Atorvastatin Calcium 40 mg PO HS 12/30/22 [History] Biotin 10,000 mcg PO BID 12/30/22 [History] Cetirizine HCl [All Day Allergy Relief] 10 mg PO DAILY 12/30/22 [History] Ergocalciferol (Vitamin D2) [Vitamin D2] 1 tab PO UD 12/30/22 [History] Folic Acid/Multivit,Iron,[place] [One Daily Complete Tablet] 1 tab PO DAILY 12/30/22 [History] Krill/Om-3/Dha/Epa/Phospho/Ast [Krill Oil 500 mg Softgel] 1 each PO BID 12/30/22 [History] Omeprazole 20 mg PO BID 12/30/22 [History] Phentermine HCl 1 tab PO DAILY 12/30/22 [History] Semaglutide [Ozempic] 1 mg PO WEEKLY 12/30/22 [History] Triamterene/Hydrochlorothiazid [Triamterene-Hctz 75-50 mg Tab] 1 tab PO DAILY 12/30/22 [History] Venlafaxine HCl [Effexor Xr] 150 mg PO DAILY 12/30/22 [History] Hx Tetanus, Diphtheria Vaccination/Date Given: Yes Hx Influenza Vaccination/Date Given: No Hx Pneumococcal Vaccination/Date Given: No Travel Risk - International Travel Have you traveled outside of the country in past 3 weeks: No - Coronavirus Screening Are you exhibiting any of the following symptoms?: No Close contact with a COVID-19 positive Pt in past 14-21 Days: No - Vaccine Status Have you recieved a Covid-19 vaccination: Yes Boiler Inspector: Moderna - Vaccination Dates Date of 2cond Vaccination (if applicable): . - Review of Systems Constitutional: No Symptoms Eyes: No Symptoms Ears, Nose, & Throat: No Symptoms Respiratory: Dyspnea on Exertion (ALEJANDRO) Cardiac: Palpitations Abdominal/Gastrointestinal: No Symptoms Genitourinary Symptoms: No Symptoms Musculoskeletal: No Symptoms Skin: No Symptoms Neurological: No Symptoms Psychological: Anxiety Endocrine: No Symptoms Hematologic/Lymphatic: No Symptoms Immunological/Allergic: No Symptoms - Past Medical History Pertinent Past Medical History: Yes Neurological History: No Pertinent History ENT History: No Pertinent History Cardiac History: Hypertension Respiratory History: No Pertinent History Endocrine Medical History: No Pertinent History, Diabetes Type II Musculoskeletal History: No Pertinent History GI Medical History: GERD History: No Pertinent History Psycho-Social History: Anxiety, Depression Female Reproductive Disorders: Other Other Medical History: recently prescribed diet pills, PCOS - Past Surgical History Past Surgical History: Yes Neuro Surgical History: No Pertinent History Cardiac: No Pertinent History Respiratory: No Pertinent History Gastrointestinal: No Pertinent History Genitourinary: No Pertinent History Musculoskeletal: Other Female Surgical History: No Pertinent History Other Surgical History: bilateral foot surgery at age of 7 - Social History Smoking Status: Current every day smoker How long have you smoked: 3 months Exposure to second hand smoke: No Drug Use: none Patient Lives Alone: No - Female History Hx Last Menstrual Period: 10/2022 Hx Now: (unknown) - Nursing Vital Signs Nursing Vital Signs: Initial Vital Signs Temperature 98.1 F 12/30/22 22:09 Pulse Rate 97 H 12/30/22 22:09 Respiratory Rate 24 12/30/22 22:09 Blood Pressure 147/105 12/30/22 22:09 O2 Sat by Pulse Oximetry 97 12/30/22 22:09 Pain Scale Pain Intensity 0 - Physical Exam General Appearance: no apparent distress, alert, anxiety Eye Exam: PERRL/EOMI, eyes nml inspection Ears, Nose, Throat Exam: normal ENT inspection, TMs normal, pharynx normal Neck Exam: normal inspection, non-tender, supple, full range of motion Respiratory Exam: lungs clear Cardiovascular Exam: regular rate/rhythm, normal heart sounds Gastrointestinal/Abdomen Exam: soft Back Exam: normal inspection, normal range of motion Extremity Exam: normal inspection, normal range of motion Neurologic Exam: alert, oriented x 3, cooperative, No normal mood/affect (Anxious) Skin Exam: normal color SpO2 Interpretation: normal SpO2: 96 O2 Delivery: Room Air - Course EKG Interpreted by Me: RATE ([id number]), Sinus Rhythm, NORMAL AXIS, NORMAL INTERVALS, Non-specific ST Changes Ordered Tests: Active Orders 24 hr Category Date Time Status Geographic Area Intelligence Officer STAT Care 12/30/22 22:55 Active EKG-ER Only STAT Care 12/30/22 22:54 Active IV Insertion STAT Care 12/30/22 22:54 Active Telemetry q4h Care 12/30/22 23:27 Active CHEST 1 VIEW (PORTABLE) Stat Exams 12/30/22 22:55 Taken CHEST WITH CONTRAST [CT] Stat Exams 12/30/22 23:27 Completed CBC W DIFF Stat Lab 12/30/22 22:57 Completed CK-Creatinine Phosphokinase Stat Lab 12/30/22 22:57 Completed CMP Stat Lab 12/30/22 22:57 Completed D-DIMER QUANTITATIVE Stat Lab 12/30/22 22:57 Completed FREE T3 [FREE TRIODOTHYRONINE] Stat Lab 12/31/22 Ordered HCG QUALITATIVE, SERUM Stat Lab 12/30/22 22:57 Completed MAG [MAGNESIUM] Stat Lab 12/30/22 23:34 Completed TROPONIN Q4H Lab 12/30/22 22:57 Completed TROPONIN Q4H Lab 12/31/22 03:00 Ordered TROPONIN Q4H Lab 12/31/22 07:00 Ordered TSH [TSH, 3RD Generation] Stat Lab 12/30/22 22:57 Completed Medication Summary Generic Name Dose Route Start Last Admin Trade Name Freq PRN Reason Stop Dose Admin Potassium Chloride 20 meq in 100 mls @ 50 mls/hr 12/30/22 23:27 12/30/22 23:35 Potassium Chloride 20 Meq In Water 100ml IV 12/31/22 01:26 50 mls/hr STAT ONE Administration Discontinued Medications Generic Name Dose Route Start Last Admin Trade Name Freq PRN Reason Stop Dose Admin Aspirin 324 mg 12/30/22 22:54 12/30/22 23:02 Aspirin 81 Mg Tab.Chew PO 12/30/22 22:55 324 mg STAT ONE Administration Sodium Chloride 1,000 mls @ 999 mls/hr 12/30/22 23:27 12/30/22 23:36 Sodium Chloride 0.9% 1000 Ml IV 12/31/22 00:27 999 mls/hr .Q1H1M STA Administration Sodium Chloride Confirm 12/30/22 23:34 Sodium Chloride 0.9% 1000 Ml Administered 12/30/22 23:35 Dose 1,000 mls @ ud .ROUTE .STK-MED ONE Potassium Chloride Confirm 12/30/22 23:34 Potassium Chloride 20 Meq In Water 100ml Administered 12/30/22 23:35 Dose 100 mls @ ud IV .STK-MED ONE Potassium Chloride 40 meq 12/30/22 23:27 12/30/22 23:35 Potassium Chloride Tab 10 Meq Tab PO 12/30/22 23:28 40 meq STAT ONE Administration Potassium Chloride Confirm 12/30/22 23:34 Potassium Chloride Tab 10 Meq Tab Administered 12/30/22 23:35 Dose 40 meq PO .STK-MED ONE Lab/Rad Data: Laboratory Result Diagrams 12/30/22 22:57 12/30/22 22:57 Laboratory Results 12/30/22 12/30/22 12/30/22 Range/Units 23:34 22:57 22:57 WBC (4.0-10.5) x10^3/uL RBC (4.1-5.4) x10^6/uL Hgb (12.0-16.0) g/dL Hct (35-47) % MCV (78-100) fL MCH (26-32) pg MCHC (32-36) g/dL RDW (11.5-14.0) % Plt Count (150-450) x10^3/uL MPV (7.5-11.0) fL Gran % (36.0-66.0) % Immature Gran % (Auto) (0.00-0.4) % Nucleat RBC Rel Count (0.00-0.1) % Eos # (Auto) (0-0.5) x10^3/uL Immature Gran # (Auto) (0.00-0.03) x10^3u/L Absolute Lymphs (auto) (1.0-4.6) x10^3/uL Absolute Monos (auto) (0.0-1.3) x10^3/uL Absolute Nucleated RBC (0.00-0.01) x10^3u/L Lymphocytes % (24.0-44.0) % Monocytes % (0.0-12.0) % Eosinophils % (0.00-5.0) % Basophils % (0.0-0.4) % Absolute Granulocytes (1.4-6.9) x10^3/uL Basophils # (0-0.4) x10^3/uL D-Dimer (0.0-0.50) mg/L Sodium (137-145) mmol/L Potassium (3.5-5.1) mmol/L Chloride (98-107) mmol/L Carbon Dioxide (22-30) mmol/L Anion Gap (5-15) MEQ/L BUN (7-17) mg/dL Creatinine (0.52-1.04) mg/dL Estimated GFR ML/MIN Glucose (74-106) mg/dL Calcium (8.4-10.2) mg/dL Magnesium 2.1 (1.6-2.3) mg/dL Total Bilirubin (0.2-1.3) mg/dL AST (14-36) U/L ALT (0-35) U/L Alkaline Phosphatase (38-126) U/L Creatine Kinase (30-135) U/L Troponin I < 0.012 (0.000-0.034) ng/mL Serum Total Protein (6.3-8.2) g/dL Albumin (3.5-5.0) g/dL TSH 3rd Generation (0.47-4.68) mIU/L Serum HCG, Qual NEGATIVE (NEGATIVE) 12/30/22 12/30/22 12/30/22 Range/Units 22:57 22:57 22:57 WBC (4.0-10.5) x10^3/uL RBC (4.1-5.4) x10^6/uL Hgb (12.0-16.0) g/dL Hct (35-47) % MCV (78-100) fL MCH (26-32) pg MCHC (32-36) g/dL RDW (11.5-14.0) % Plt Count (150-450) x10^3/uL MPV (7.5-11.0) fL Gran % (36.0-66.0) % Immature Gran % (Auto) (0.00-0.4) % Nucleat RBC Rel Count (0.00-0.1) % Eos # (Auto) (0-0.5) x10^3/uL Immature Gran # (Auto) (0.00-0.03) x10^3u/L Absolute Lymphs (auto) (1.0-4.6) x10^3/uL Absolute Monos (auto) (0.0-1.3) x10^3/uL Absolute Nucleated RBC (0.00-0.01) x10^3u/L Lymphocytes % (24.0-44.0) % Monocytes % (0.0-12.0) % Eosinophils % (0.00-5.0) % Basophils % (0.0-0.4) % Absolute Granulocytes (1.4-6.9) x10^3/uL Basophils # (0-0.4) x10^3/uL D-Dimer 0.78 H* (0.0-0.50) mg/L Sodium 143 (137-145) mmol/L Potassium 2.9 L* (3.5-5.1) mmol/L Chloride 97 L (98-107) mmol/L Carbon Dioxide 32 H (22-30) mmol/L Anion Gap 17.0 H (5-15) MEQ/L BUN 19 H (7-17) mg/dL Creatinine 1.19 H (0.52-1.04) mg/dL Estimated GFR 56.2 ML/MIN Glucose 88 (74-106) mg/dL Calcium 9.1 (8.4-10.2) mg/dL Magnesium (1.6-2.3) mg/dL Total Bilirubin 0.80 (0.2-1.3) mg/dL AST 25 (14-36) U/L ALT 32 (0-35) U/L Alkaline Phosphatase 97 (38-126) U/L Creatine Kinase 27 L (30-135) U/L Troponin I (0.000-0.034) ng/mL Serum Total Protein 8.5 H (6.3-8.2) g/dL Albumin 4.6 (3.5-5.0) g/dL TSH 3rd Generation 0.282 L (0.47-4.68) mIU/L Serum HCG, Qual (NEGATIVE) 12/30/22 Range/Units 22:57 WBC 13.9 H (4.0-10.5) x10^3/uL RBC 5.12 (4.1-5.4) x10^6/uL Hgb 15.1 (12.0-16.0) g/dL Hct 47.0 (35-47) % MCV 91.8 (78-100) fL MCH 29.5 (26-32) pg MCHC 32.1 (32-36) g/dL RDW 12.8 (11.5-14.0) % Plt Count 328 (150-450) x10^3/uL MPV 10.2 (7.5-11.0) fL Gran % 60.1 (36.0-66.0) % Immature Gran % (Auto) 0.4 (0.00-0.4) % Nucleat RBC Rel Count 0.0 (0.00-0.1) % Eos # (Auto) 0.11 (0-0.5) x10^3/uL Immature Gran # (Auto) 0.05 H (0.00-0.03) x10^3u/L Absolute Lymphs (auto) 4.45 (1.0-4.6) x10^3/uL Absolute Monos (auto) 0.88 (0.0-1.3) x10^3/uL Absolute Nucleated RBC 0.00 (0.00-0.01) x10^3u/L Lymphocytes % 32.0 (24.0-44.0) % Monocytes % 6.3 (0.0-12.0) % Eosinophils % 0.8 (0.00-5.0) % Basophils % 0.4 (0.0-0.4) % Absolute Granulocytes 8.34 H (1.4-6.9) x10^3/uL Basophils # 0.06 (0-0.4) x10^3/uL D-Dimer (0.0-0.50) mg/L Sodium (137-145) mmol/L Potassium (3.5-5.1) mmol/L Chloride (98-107) mmol/L Carbon Dioxide (22-30) mmol/L Anion Gap (5-15) MEQ/L BUN (7-17) mg/dL Creatinine (0.52-1.04) mg/dL Estimated GFR ML/MIN Glucose (74-106) mg/dL Calcium (8.4-10.2) mg/dL Magnesium (1.6-2.3) mg/dL Total Bilirubin (0.2-1.3) mg/dL AST (14-36) U/L ALT (0-35) U/L Alkaline Phosphatase (38-126) U/L Creatine Kinase (30-135) U/L Troponin I (0.000-0.034) ng/mL Serum Total Protein (6.3-8.2) g/dL Albumin (3.5-5.0) g/dL TSH 3rd Generation (0.47-4.68) mIU/L Serum HCG, Qual (NEGATIVE) - Progress Progress: improved, re-examined Air Movement: good Progress Note: 12/31/22 01:16 32-year-old is evaluated for palpitations off and on for the last couple of days and having occasional chest pressure momentarily. Patient is asymptomatic c urrently and symptoms are only with ambulation and after smoking per patient. She is given aspirin. EKG showed normal sinus rhythm with no ST elevations and negative troponins. Patient's symptoms been going on for more than 48 hours and 1 negative troponin rules out. Patient does have low potassium with a normal magnesium and some element of dehydration and given fluids and oral and IV potassium runs. Patient does take some diuretics and that is probably the reason for her hypokalemia. We will give oral supplement for the next few days. I have also checked her TSH level which is a little lower, need further evaluation for hypothyroidism, I have ordered free T3 and T4 which is pending now. I have discussed with patient about possibility of hyperthyroidism causing her to have palpitations, will leave up to primary care/endocrinology for further evaluation and to start her on medications. While in the ER she did not have any episode of tachycardia, shortness of breath or chest pressure. She has elevated D-dimers and CTA is negative for pulmonary embolism or any other acute cardiopulmonary pathology. She is recommended outpatient follow-up. At this point I do not think patient needs any further work-up in the ER and stable for discharge. Discussed signs symptoms of worsening needing return to ER which she seems understanding. Blood Culture(s) Obtained: No Antibiotics given: No Counseled pt/family regarding: lab results, diagnosis, need for follow-up, rad results, smoking cessation Medical Desision Making - Discussion of managment Reviewed:: Test results, Need for additional workup Agreed on:: Treatment plan, need for follow-up - Diagnostic Testing Radiological Interpretation: Interpreted by me, Reviewed by me, Teleradiologist Report - Risk of complications The pt has a mod risk of morbidity or mortality based on: Need for prescription drug management - Departure Departure Disposition: Home Clinical Impression: Palpitations, Low TSH level, Hypokalemia Condition: Stable Critical Care Time: No Referrals: VAMSI OLSEN MD [Primary Care Provider] - Follow up with PCP 1 day (Call tomorrow for appointment for reevaluation) Instructions: Palpitations (DC), Hypokalemia (DC) Additional Instructions: Keep yourself well-hydrated. Follow-up with primary care for further evaluation of thyroid, recheck of low potassium and may need referral for endocrinology. Do not smoke. Return to ER for worsening palpitations or if having constant chest pressure, difficulty breathing etc. Prescriptions: Potassium Chloride [K-Tab ER] 10 meq PO BID 5 Days #10 tablet
--- NOTE | 2022-12-31 01:03 | XRAY ---
CLINICAL HISTORY:Palpitations. PE protocol. COMPARISON:None; TECHNIQUES:Axial CT pulmonary angiogram was performed using contrast with sagittal and coronal reformats; FINDINGS: The main pulmonary trunk, and right, and left pulmonary arteries with the ascending and descending branches are normal. Measurements. Main pulmonary trunk: 29 mm. Right pulmonary trunk: 22 mm. Left pulmonary trunk: 21 mm. The segmental branches are normal in caliber and show good contrast opacification with no evidence of filling defect/thrombosis. No evidence of any focal filling defect was seen. The aortic arch and visualized ascending aorta and descending aorta are normal. Bilateral lung carson are normal in translucency and markings, except for dependant confluence ground glass haziness in bilateral lung bases. No significant mediastinal lymphadenopathy. No evidence of pleural/pericardial effusion. IMPRESSION: Unremarkable CT pulmonary angiography, no evidence of acute thromboembolism. Electronically Signed by: Isabel Dominique MD. (12/30/2022 23:57:49 TEMPERATURE INSPECTOR)
[2022-12-31 01:45] VITALS: BP 107/75; PULSE 74
--- NOTE | 2022-12-31 08:37 | XRAY ---
Indication: Palpitation. Comparison: November 11, 2018 Portable chest again demonstrates normal heart, lungs, and bony thorax.
== END 2022-12-31 01:52 | disposition home or self-care (01) ==
LOC: ED 22:07
DX: R00.2 Palpitations (principal); R94.6 Abnormal results of thyroid function studies; E87.6 Hypokalemia; R07.9 Chest pain, unspecified; R06.02 Shortness of breath; E78.5 Hyperlipidemia, unspecified; I10 Essential (primary) hypertension; E11.9 Type 2 diabetes mellitus without complications; Z79.85 Long-term (current) use of injectable non-insulin antidiabetic drugs; Z79.899 Other long term (current) drug therapy; Z72.0 Tobacco use
CPT/HCPCS: 36000; 36415; 71045; 71260; 80053; 82550; 83735; 84439; 84443; 84481; 84484; 84703; 85025; 85379; 93005; 93041; 96365; 99284; J3480; A9270-GY